=== PATIENT | male | born 2000 | race Caucasian/White ===

== ENCOUNTER 2024-04-15 07:23 | Day surgery (SDC) | payer MEDICAID ==
[~2024-04-15] VITALS: Ht 182.9 cm; Wt 184.0 kg
[~2024-04-15 07:23] MED LIST: ATOM40CA7 PO; BREX2TAB PO; FLUO20CA39 PO; HYDR-3927 PO
[2024-04-15 07:47] VITALS: BP 168/110; PULSE 142; RESP 15
[2024-04-15 09:55] VITALS: BP 130/89; PULSE 103; RESP 16; O2SAT 94
[2024-04-15 10:05] VITALS: BP 148/89; PULSE 109; RESP 16; O2SAT 94
[2024-04-15 10:25] VITALS: BP 150/89; PULSE 100; RESP 16; O2SAT 95
[2024-04-15] MEDS ORDERED: propofol inj 40 ML IV ONE (10:29)
== END 2024-04-15 10:25 | disposition home or self-care (01) ==
LOC: SSTAY O 07:23 → GI LAB 10:25
PROVIDERS: ATTEND Internal Medicine Gastroenterology
DX: K52.89 Other specified noninfective gastroenteritis and colitis (principal)
CPT/HCPCS: 45380; J2704; J7030; Z7512; A4618; A4620